=== PATIENT | female | born 1945 | race Hispanic/Latino ===

== ENCOUNTER 2020-07-14 17:53 | Inpatient (IN) | payer MEDICARE, MEDICAID ==
[~2020-07-14 17:53] MED LIST: Aspirin Chewable 81 MG TAB ONE; Heparin 10,000 UNITS/ 10 ML VIAL ONE; Iopamidol 370 76% 100 ML VIAL ONE; Iopamidol 370 76% 50 ML VIAL FS ONE; Iopamidol-370 76% 500 ML 1 ML ONE
[2020-07-14 18:15] LABS: #Basophils 0.1 thou/uL (0.0-0.2); #Eosinphils 0.1 thou/uL (0.0-0.7); #Lymphocytes 4.7 thou/uL (1.20-3.40); #Monocytes 0.7 thou/uL (0.11-0.59); #Neutrophils 4.6 thou/uL (1.40-6.50); %Eosinophils 0.9 % (0.0-10.0); %Lymphocytes 46.1 % (21.0-51.0); Hemoglobin 12.8 g/dL (12.0-16.0); Mean Corpuscular HGB CONC 34.2 g/dL (32.0-36.0); Mean Corpuscular Volume 90.6 fL (78.0-98.0); Mean Platelet Volume 6.8 fL (7.4-10.4); Platelet Count 313 thou/uL (130-400); RBC Distribution Width 12.2 % (11.5-14.5); Red Blood Cell (RBC) Count 4.15 mill/uL (4.20-5.40); White Blood Cell (WBC) Count 10.1 thou/uL (4.8-10.8)
[2020-07-14 18:23] LABS: INR-International Normal Ratio 1.1; PTT 28.1 sec (22.9-36.1); Prothrombin Time 14.8 sec (12.0-14.7)
[2020-07-14 18:30] LABS: ALT (SGPT) 29 U/L (8-55); AST (SGOT) 28 U/L (5-34); Albumin 4.4 g/dL (3.4-4.8); Alkaline Phosphatase 111 U/L (40-110); Anion Gap 17 mmol/L (10-20); BUN (Urea Nitrogen) 9 mg/dL (9.8-20.1); Bilirubin, Total 0.3 mg/dL (0.2-1.2); CK (CPK) 65 U/L (29-168); Calc. Creatinine Clearance 0 mL/min (70-130); Calcium 9.7 mg/dL (7.8-10.44); Carbon Dioxide 23 mmol/L (23-31); Chloride 104 mmol/L (98-107); Estimated GFR-MDRD 76; Globulin 3.1 g/dL (2.4-3.5); Glucose 180 mg/dL (83-110); Potassium 3.4 mmol/L (3.5-5.1); Protein, Total 7.5 g/dL (6.0-8.3); Sodium 141 mmol/L (136-145)
--- NOTE | 2020-07-14 18:41 | CT ---
CT HEAD WITHOUT CONTRAST: 07/14/20 INDICATIONS: Mental status change. Chest pain and syncopal episode. No comparison. Mild cortical volume loss. Ventricles have normal size and position. Basal ganglia calcification note d. No mass, hemorrhage, infarct, or other acute process identified. Sinuses appear clear. IMPRESSION: No acute findings. POS: AGW
[2020-07-14 18:46] LABS: CKMB 3.2 ng/mL (0-6.6)
[2020-07-14] MEDS ORDERED: Nitroglycerin 100MG/250ML BOT 250 ML ONE (19:09)
[2020-07-14] MEDS ORDERED: Midazolam HCl 2 mg/2 ml Vial ONE (19:32)
[2020-07-14] MEDS ORDERED: TICAGRELOR 90 MG TABLET ONE (19:36)
[2020-07-14] MEDS ORDERED: Acetaminophen 500 MG TAB PO PRN (20:06)
[2020-07-14] MEDS ORDERED: Ondansetron PF 4 MG/2 ML Vial IVP PRN (20:07)
--- NOTE | 2020-07-14 20:25 | CT ---
CT ANGIO CHEST, ABDOMEN WITH IV CONTRAST: 07/14/20 Aortogram protocol was followed with multiplanar reconstructions and 3D postprocessing. INDICATIONS: Chest pain, syncope. FINDINGS: Thoracic aorta shows mild atherosclerotic change. No dissection or aneurysm. Abdominal aorta shows mild atherosclerotic change. No evidence of dissection or aneurysm. Aortic branches including celiac artery and superior mesenteric artery show atherosclerotic change bu t no focal stenosis. No evidence of renal artery stenosis. The pulmonary arteries are opacified and there is no evidence of proximal pulmonary embolus. The mediastinum is unremarkable with no evidence of adenopathy. Lung marin appear clear with no infiltrate or effusion. There is cardiomegaly and mild vascular engo rgement. Images through the abdomen show unremarkable liver, spleen and pancreas. Kidneys unremarkable. The vi sualized bowel loops unremarkable. No adenopathy. Osseous structures show degenerative spine changes. No compression deformity. There is a large cyst involving the posterior right kidney which measures approximately 4 cm. Adrenal glands and kidneys otherwise unremarkable. IMPRESSION: 1. No evidence of thoracic or abdominal aortic aneurysm or dissection. 2. No evidence of proximal pulmonary embolus. 3. No acute process identified. POS: AGW
[2020-07-14 20:40] VITALS: BMI 21.9
--- NOTE | 2020-07-14 20:56 | HP ---
REASON FOR ADMISSION: Acute myocardial infarction. HISTORY OF PRESENT ILLNESS: Ms. Delisa Borden is a 74-year-old woman, Kazakh-speaking only. The patient presented to the hospital with severe substernal chest pain. The patient also had syncope at home and en route to [facility]. She has also been having a headache for about 2 weeks. The patient had syncopal episode at home and also on the way here. PAST MEDICAL HISTORY: Arthritis, diabetes, and ?low blood pressure. MEDICATION: The patient does not recall the names. ALLERGIES: NOT ALLERGIC TO IODINE. SHE IS ALLERGIC TO PENICILLIN. OTHER CARDIAC HISTORY: Negative. SOCIAL HISTORY: No alcohol or tobacco. The patient is accompanied by her granddaughter, who appears very knowledgeable and helpful. The patient here had a stat CT scan of the head showing no bleeding and a stat CT of her chest, making sure she did not have aortic dissection, which she did not. PHYSICAL EXAMINATION: GENERAL: This was a critically ill-appearing [place] female complaining of severe chest pain, groaning almost continuously. The patient looked pale and somewhat diaphoretic. VITAL SIGNS: Blood pressure was 110/70, pulse in the 70s with frequent premature beats and some pauses. NECK: Neck veins are not distended. Carotids normal upstrokes. LUNGS: Clear anteriorly, laterally. CARDIAC: Normal S1, normal S2 with frequent premature contractions. I do not hear murmur, rub, or gallop. ABDOMEN: Soft and nontender. EXTREMITIES: Warm, dry. No clubbing. No cyanosis. She is somewhat diaphoretic, but no edema. Pedal pulses are palpable but diminished. Femoral pulses present bilaterally. LABORATORIES: EKGs revealed bifascicular block with right bundle-branch block and a left axis deviation with ST elevation in the anterior leads. CT scan of the head and chest as outlined above. ASSESSMENT: 1. Acute extensive anterior myocardial infarction. 2. Bifascicular block. 3. Frequent premature atrial contractions and some pauses on the EKG. 4. History of diabetes. Initial presentation indicated a very guarded prognosis with extensive myocardial infarction and a bifascicular block. Informed consent was obtained from the patient and granddaughter. Discussed risk of catheterization, stroke, heart attack, iodine allergy, loss of blood supply to leg or kidney. This was done quickly as the patient was critically ill and looked like she would be unlikely to survive without an intervention. The patient was taken to the catheterization lab as will be outlined in the notes. We found that she had 100% occluded LAD proximal at the origin, which was successfully stented. We will check blood sugars. Monitor blood pressure. Job ID: [id number]
[2020-07-14] MEDS: Lisinopril 2.5 MG TAB PO SCH (21:44)
[2020-07-14] MEDS: TICAGRELOR 90 MG TABLET PO SCH (21:46)
[2020-07-14] MEDS: Atorvastatin Calcium 40 MG TAB PO SCH (21:46)
[2020-07-15 03:30] LABS: #Monocytes 0.6 thou/uL (0.11-0.59); #Neutrophils 8.5 thou/uL (1.40-6.50); %Basophils 0.4 % (0.0-1.0); %Eosinophils 0.2 % (0.0-10.0); %Lymphocytes 9.4 % (21.0-51.0); %Monocytes 5.7 % (0.0-10.0); %Neutrophils 84.2 % (42.0-75.0); Hemoglobin 11.9 g/dL (12.0-16.0); Mean Corpuscular HGB CONC 34.3 g/dL (32.0-36.0); Mean Corpuscular Hemoglobin 31.3 pg (27.0-31.0); Mean Corpuscular Volume 91.5 fL (78.0-98.0); Mean Platelet Volume 6.8 fL (7.4-10.4); Platelet Count 252 thou/uL (130-400); RBC Distribution Width 12.2 % (11.5-14.5); Red Blood Cell (RBC) Count 3.79 mill/uL (4.20-5.40); White Blood Cell (WBC) Count 10.1 thou/uL (4.8-10.8)
[2020-07-15 04:00] LABS: ALT (SGPT) 43 U/L (8-55); AST (SGOT) 72 U/L (5-34); Alkaline Phosphatase 98 U/L (40-110); Anion Gap 14 mmol/L (10-20); BUN (Urea Nitrogen) 8 mg/dL (9.8-20.1); Bilirubin, Total 0.4 mg/dL (0.2-1.2); Calc. Creatinine Clearance 62 mL/min (70-130); Carbon Dioxide 23 mmol/L (23-31); Cardiac Risk 3.7 (Less than 4.5); Chloride 104 mmol/L (98-107); Cholesterol 168 mg/dl (< 200 Desired); Estimated GFR-MDRD 83; Globulin 2.8 g/dL (2.4-3.5); Glucose 296 mg/dL (83-110); HDL Cholesterol 46 mg/dL (>60 Neg Risk); LDL Cholesterol, Calculated 107 mg/dL; Potassium 3.2 mmol/L (3.5-5.1); Protein, Total 6.8 g/dL (6.0-8.3); Sodium 138 mmol/L (136-145); Triglycerides 75 mg/dL (Less than 150)
[2020-07-15] MEDS: Fentanyl 100 MCG/2 ML VIAL SLOW IVP PRN ×4 (08:10→21:36)
[2020-07-15] MEDS ORDERED: Potassium Chloride 20 MEQ TAB PO SCH ×2 (08:45→12:00)
[2020-07-15] MEDS: Famotidine 20 MG TAB PO SCH ×2 (08:58→21:37)
[2020-07-15] MEDS: TICAGRELOR 90 MG TABLET PO SCH ×2 (08:59→21:37)
[2020-07-15] MEDS ORDERED: Aspirin Chewable 81 MG TAB PO SCH (09:00)
[2020-07-15] MEDS ORDERED: Dextrose 5% in Water 1,000 ML IV PRN (09:15)
[2020-07-15] MEDS ORDERED: Dextrose 50% Abboject 50 ML SYRINGE IVP PRN (09:15)
--- NOTE | 2020-07-15 09:28 | PRG ---
DATE OF SERVICE: 07/15/2020 SUBJECTIVE: Ms. Borden is resting comfortably in bed. She has some vague chest discomfort, nothing anything like when she had last night. She takes some deep breath. She is unable to tell me if it makes any difference when she takes a deep breath. OBJECTIVE: VITAL SIGNS: Her blood pressure is 105/59, pulse 72 and it is regular. LUNGS: Clear. CARDIAC: Normal S1, normal S2. ABDOMEN: Soft, nontender. EXTREMITIES: There is no edema. DIAGNOSTIC STUDIES: EKG continues to show a bifascicular block. There are T-wave inversions in the anterior leads compatible with reperfusion pattern. The QRS is not as wide, it is now 134 milliseconds, previously looked more like 180 milliseconds . ASSESSMENT: 1. Status post extensive anterior myocardial infarction with flush occlusion of the proximal left anterior descending artery. 2. Successful stent implantation, 3.0 x 20 mm drug-coated stent, post-dilated to 3.25 mm. 3. Bifascicular block. 4. Diabetes. 5. Unfortunately, cardiac enzymes were not obtained as ordered last night. We will call the Lab and have them done from the 3:30 specimen as well as now, could be having some pericardial-type pain, does not appear to be anginal. Job ID: [id number]
[2020-07-15 09:42] LABS: Troponin I 7.619 ng/mL (< 0.028)
[2020-07-15] MEDS: Lisinopril 2.5 MG TAB PO SCH (09:48)
[2020-07-15] MEDS: Aspirin 81 mg Enteric Coated Tablet PO SCH (09:48)
[2020-07-15] MEDS: Insulin Regular 300 UNITS/3 ML VIAL SC PRN ×2 (11:45→18:13)
[2020-07-15] MEDS: Atorvastatin Calcium 40 MG TAB PO SCH (21:37)
[2020-07-16 04:37] LABS: #Lymphocytes 1.8 thou/uL (1.20-3.40); #Neutrophils 8.2 thou/uL (1.40-6.50); %Basophils 0.4 % (0.0-1.0); %Eosinophils 0.3 % (0.0-10.0); %Lymphocytes 16.1 % (21.0-51.0); %Monocytes 8.8 % (0.0-10.0); %Neutrophils 74.4 % (42.0-75.0); Hemoglobin 13.6 g/dL (12.0-16.0); Mean Corpuscular HGB CONC 33.6 g/dL (32.0-36.0); Mean Corpuscular Volume 92.5 fL (78.0-98.0); Mean Platelet Volume 8.1 fL (7.4-10.4); Platelet Count 219 thou/uL (130-400); RBC Distribution Width 12.5 % (11.5-14.5); Red Blood Cell (RBC) Count 4.38 mill/uL (4.20-5.40); White Blood Cell (WBC) Count 11.1 thou/uL (4.8-10.8)
[2020-07-16 05:05] LABS: Anion Gap 15 mmol/L (10-20); BUN (Urea Nitrogen) 4 mg/dL (9.8-20.1); Calc. Creatinine Clearance 72 mL/min (70-130); Calcium 9.2 mg/dL (7.8-10.44); Carbon Dioxide 19 mmol/L (23-31); Chloride 104 mmol/L (98-107); Estimated GFR-MDRD Greater than 90; Glucose 207 mg/dL (83-110); Potassium 3.4 mmol/L (3.5-5.1); Sodium 135 mmol/L (136-145)
[2020-07-16] MEDS: Insulin Regular 300 UNITS/3 ML VIAL SC PRN ×2 (06:25→12:14)
[2020-07-16] MEDS ORDERED: Potassium Chloride 20 MEQ TAB PO SCH (08:00)
[2020-07-16] MEDS ORDERED: Enoxaparin Sodium 40 MG/0.4 ML SYRINGE SC SCH (09:00)
[2020-07-16] MEDS: Lisinopril 2.5 MG TAB PO SCH (09:36)
[2020-07-16] MEDS: Aspirin 81 mg Enteric Coated Tablet PO SCH (09:36)
[2020-07-16] MEDS: TICAGRELOR 90 MG TABLET PO SCH (09:37)
[2020-07-16] MEDS: Famotidine 20 MG TAB PO SCH ×2 (09:37→19:57)
--- NOTE | 2020-07-16 10:20 | PRG ---
DATE OF SERVICE: 07/16/2020 SUBJECTIVE: Ms. Borden feels much better today. No complaints. OBJECTIVE: VITAL SIGNS: Her blood pressure is 107/54, pulse 84 and regular. LUNGS: Clear. CARDIAC: Normal S1. Normal S2. ABDOMEN: Soft and nontender. ASSESSMENT: 1. Status post anterior myocardial infarction. 2. Bifascicular block. 3. Diabetes. PLAN: 1. Lisinopril 2.5 mg a day. 2. Carvedilol 3.125 mg twice a day. 3. Aspirin. 4. We will change the Plavix. 5. We will need to follow up with primary care physician concerning diabetes. Should be able to be released home tomorrow. Job ID: [id number]
[2020-07-16] MEDS ORDERED: Clopidogrel Bisulfate 300 MG TAB PO SCH (13:45)
[2020-07-16] MEDS: Carvedilol 3.125 MG TAB PO SCH (18:17)
[2020-07-16] MEDS: metFORMIN 500 MG TAB PO SCH (18:17)
[2020-07-16] MEDS: Atorvastatin Calcium 40 MG TAB PO SCH (19:57)
[2020-07-16] MEDS ORDERED: Insulin Regular 300 UNITS/3 ML VIAL SC PRN (21:15)
[2020-07-17] MEDS: Insulin Regular 300 UNITS/3 ML VIAL SC PRN ×2 (06:36→11:16)
[2020-07-17] MEDS: Aspirin 81 mg Enteric Coated Tablet PO SCH (08:25)
[2020-07-17] MEDS: Famotidine 20 MG TAB PO SCH (08:25)
[2020-07-17] MEDS: metFORMIN 500 MG TAB PO SCH (08:25)
[2020-07-17] MEDS: Carvedilol 3.125 MG TAB PO SCH ×2 (08:39→09:06)
[2020-07-17] MEDS: Lisinopril 2.5 MG TAB PO SCH ×2 (08:41→09:05)
[2020-07-17] MEDS ORDERED: Clopidogrel Bisulfate 75 MG TAB PO SCH (09:00)
[2020-07-17] MEDS ORDERED: Enoxaparin Sodium 30 MG/0.3 ML SYRINGE SC SCH (09:00)
--- NOTE | 2020-07-17 09:42 | DIS ---
DATE OF ADMISSION: 07/14/2020 DATE OF DISCHARGE: 07/17/2020 DISCHARGE DIAGNOSES: 1. Acute anterior wall myocardial infarction. 2. Hypertension. 3. Diabetes mellitus. HISTORY OF PRESENT ILLNESS: The patient is a very pleasant 74-year-old woman who presented with acute onset of substernal chest pain. The patient was taken emergently to the cardiac catheterization . On 07/14/2020, she underwent a left heart catheterization. She was found to have 100% occluded left anterior descending artery. Left circumflex artery and right coronary artery were free of significant disease. The patient subsequently underwent PTCA and stent placement into the proximal LAD. The patient was subsequently placed on medical therapy. A followup echocardiogram revealed ejection fraction of 35% to 40%. The patient was treated with beta-hue, DUSTIN inhibitor therapy, Plavix, aspirin, and lipid-lowering medication. The patient was discharged in stable, but guarded condition. DISCHARGE MEDICATIONS: 1. Aspirin 81 daily. 2. Lipitor 40 daily. 3. Coreg 3.125 b.i.d. 4. Plavix 75 daily. 5. Lisinopril 2.5 daily. 6. Glucophage 500 b.i.d. Job ID: [id number] [facility]
[2020-07-17 11:15] VITALS: TEMP 99.1
[2020-07-17 12:46] VITALS: BP 121/63
--- NOTE | 2020-07-19 07:40 | DIS ---
DATE OF ADMISSION: 07/14/2020 DATE OF DISCHARGE: 07/17/2020 DISPOSITION: Ms. Borden will be leaving home tomorrow morning. FINAL DIAGNOSES: 1. Status post acute anterior myocardial infarction. 2. Bifascicular block. 3. Diabetes. 4. Hypercholesterolemia. MEDICATIONS AT THE TIME OF DISCHARGE: 1. Aspirin 81 mg a day. 2. Clopidogrel 75 mg a day. 3. Lisinopril 2.5 mg a day. 4. Metformin 500 mg twice a day. 5. Atorvastatin 40 mg a day. 6. Carvedilol 3.125 mg twice a day. HOSPITAL COURSE: Please see admission note for full details. Ms. Borden came to the hospital on the evening of the with severe chest pain, bifascicular block, acute anterior myocardial infarction. She was taken on an emergency basis to the cardiac catheterization lab. She was found to have a flush occlusion of her proximal LAD, left dominant circumflex with no obstructive stenosis, nondominant right coronary artery with no obstructive stenosis. Vessels successfully opened and a 3.0 x 20-mm drug-coated stent was positioned, dilated, deployed and then postdilated with a 3.25 mm balloon with high pressures. Chest pain improved with reperfusion. The patient had a vague discomfort yesterday, and today is asymptomatic and feels well. Her lungs are clear. Her groin is fine. PERTINENT LABORATORY DATA: Hemoglobin was 13.6. The peak troponin was 9.6. Potassium was 3.2 yesterday, 3.4 today. She received additional potassium today. She is on DUSTIN inhibitor. Blood sugar was 296 yesterday, 207 today, putting her back on the metformin. PLAN: She will need to follow up with her primary care physician about her diabetes. She will be asked to see us in the office in a couple of weeks. Job ID: [id number]
--- NOTE | 2020-07-21 19:18 | EKG ---
Test Reason : Blood Pressure : / mmHG Vent. Rate : 074 BPM Atrial Rate : 074 BPM P-R Int : 134 ms QRS Dur : 134 ms QT Int : 432 ms P-R-T Axes : 073 -64 081 degrees QTc Int : 479 ms Normal sinus rhythm Right bundle branch block Left anterior fascicular block Bifascicular block Septal infarct , age undetermined Abnormal ECG No previous ECGs available Confirmed by JEREMIE MORENO, DR. Yen (4) on 07/21/2020 7:18:02 PM Referred By: BRENDAN Confirmed By:DR. Farshad CHAO MD
--- NOTE | 2020-07-21 19:28 | EKG ---
Test Reason : Blood Pressure : / mmHG Vent. Rate : 087 BPM Atrial Rate : 087 BPM P-R Int : 136 ms QRS Dur : 134 ms QT Int : 404 ms P-R-T Axes : 037 035 082 degrees QTc Int : 486 ms Normal sinus rhythm Right bundle branch block T wave abnormality, consider lateral ischemia Abnormal ECG When compared with ECG of 15-JUL-2020 08:36, (Unconfirmed) Left anterior fascicular block is no longer Present Criteria for Septal infarct are no longer Present T wave inversion now evident in Lateral leads Confirmed by JEREMIE MORENO, DR. Yen (4) on 07/21/2020 7:27:55 PM Referred By: BRENDAN Confirmed By:DR. Farshad CHAO MD
== END 2020-07-17 13:34 | disposition home or self-care (01) | DRG 247 ==
LOC: ERS 17:53 → CCL 18:27 → CCU 20:01 → 2NO 07-15 16:35
PROVIDERS: ADMIT Internal Medicine Cardiovascular Disease; ATTEND Internal Medicine Cardiovascular Disease
PROC: 027034Z Dilation of Coronary Artery, One Artery with Drug-eluting Intraluminal Device, Percutaneous Approach (ICD-10-PCS; principal; 2020-07-14)
PROC: B2111ZZ Fluoroscopy of Multiple Coronary Arteries using Low Osmolar Contrast (ICD-10-PCS; 2020-07-14)
DX: I21.09 ST elevation (STEMI) myocardial infarction involving other coronary artery of anterior wall (principal); I45.2 Bifascicular block; M19.90 Unspecified osteoarthritis, unspecified site; E11.9 Type 2 diabetes mellitus without complications; I10 Essential (primary) hypertension; E78.00 Pure hypercholesterolemia, unspecified; Z88.0 Allergy status to penicillin; Z79.899 Other long term (current) drug therapy
CPT/HCPCS: 36415; 36416; 70450; 71275; 74174; 76942; 80048; 80053; 80061; 82550; 82553; 84484; 85025; 85347; 85610; 85730; 86850; 86900; 86901; 92941; 93005; 93010; 93306; 93454; 93798; 96374; 99152; C1874; C9606; J1644; J1650; J1815; J2250; J3010; Q9967